=== PATIENT | female | born 1955 | race Caucasian/White ===

== ENCOUNTER → 2016-12-03 | Outpatient (CLI) | payer BC ==
[2014-08-04 11:27] VITALS: BP 162/94
[~2016-12-03] MED LIST: ACETAMINOPHEN W1 TA6 PO; APIDRA100 U/ML SC; ASPIRIN 32325 MG/TAB PO; CALCIUM600 M1 PO; EPA FISH OIL1000 MG PO; GAVISCON PO; GOOD NEIGHBOR200 MG PO; LANTUS PEN100 U/ML SC; LEVAQUIN 5500 MG/TA1 PO; LIORESAL 1010 MG/TAB PO; NORFLEX100 MG PO; OMEPRAZOLE20 M2 PO; PEPCID20 M1 PO; VITAMIN D 1001000 IU PO
== END ==
LOC: LAB 12:09
DX: B34.9 Viral infection, unspecified (principal); R10.816 Epigastric abdominal tenderness; E10.9 Type 1 diabetes mellitus without complications; W57.XXXA Bitten or stung by nonvenomous insect and other nonvenomous arthropods, initial encounter

== ENCOUNTER → 2017-06-30 | Outpatient (CLI) | payer BC ==
[2014-08-04 11:27] VITALS: BP 162/94
[2017-06-30 12:59] LABS: EOS # 0.2 (0.04-0.40); EOS % 2.2 % (1.0-5.0); HEMATOCRIT 42.8 % (37.0-47.0); HEMOGLOBIN 13.9 g/dL (12.5-16.0); LYMPH# 1.4 (1.50-4.00); MEAN CELL VOLUME 88 fl (78-100); MEAN CORPUSCULAR HEMOGLOBIN 29 pg (27-31); MEAN CORPUSCULAR HGB CONC 33 g/dL (33-37); MEAN PLATELET VOLUME 9.8 fl (7.4-10.4); MONO # 0.6 (0.20-0.80); NEU # 8.6 (1.40-6.50); PLATELET COUNT 249 K/mm3 (130-400); RED BLOOD COUNT 4.88 M/mm3 (4.10-5.30); RED CELL DISTRIBUTION WIDTH 13.9 % (11.5-14.5); WHITE BLOOD COUNT 10.8 K/mm3 (4.8-10.8)
[2017-06-30 13:06] LABS: ALBUMIN 4.1 g/dL (3.5-5.0); BUN/CREATININE RATIO 28.1 (6.0-26.0); CALCIUM 9.4 mg/dL (8.4-10.2); POTASSIUM 4.6 mmol/L (3.6-5.0); TOTAL BILIRUBIN 0.5 mg/dL (0.2-1.3); TOTAL PROTEIN 7.8 g/dL (6.3-8.2)
[2017-06-30 13:11] LABS: URINE APPEARANCE CLEAR; URINE COLOR YELLOW; URINE PROTEIN(semi-quant) NEGATIVE (NEGATIVE)
[2017-06-30 13:12] LABS: URINE BILIRUBIN NEGATIVE (NEGATIVE); URINE BLOOD NEGATIVE (NEGATIVE); URINE GLUCOSE NEGATIVE (NEGATIVE); URINE KETONE NEGATIVE (NEGATIVE); URINE LEUKOCYTE ESTERASE NEGATIVE (NEGATIVE); URINE NITRATE NEGATIVE (NEGATIVE); URINE UROBILINOGEN NORMAL (NORMAL); URINE WBC 0-1 /hpf (0-3)
== END ==
LOC: LAB 12:38
PROVIDERS: Nurse Practitioner Family
DX: R11.0 Nausea (principal); R53.81 Other malaise; B33.0 Epidemic myalgia; R51 Headache; E10.9 Type 1 diabetes mellitus without complications; Z88.1 Allergy status to other antibiotic agents; Z88.5 Allergy status to narcotic agent; Z88.7 Allergy status to serum and vaccine; Z88.8 Allergy status to other drugs, medicaments and biological substances

== ENCOUNTER → 2018-10-25 | Outpatient (CLI) | payer BC ==
[2014-08-04 11:27] VITALS: BP 162/94
[2018-10-25 09:26] LABS: ALBUMIN 3.8 g/dL (3.4-4.8); POTASSIUM 4.3 mmol/L (3.5-5.1)
[2018-10-25 09:27] LABS: CALCIUM 9.3 mg/dL (8.3-10.5)
[2018-10-25 09:28] LABS: TOTAL PROTEIN 6.7 g/dL (6.2-8.1)
[2018-10-25 09:30] LABS: TOTAL BILIRUBIN 0.5 mg/dL (0.2-1.2)
[2018-10-25 10:36] LABS: EOS # 0.1 (0.04-0.40); EOS % 1.9 % (1.0-5.0); HEMATOCRIT 39.8 % (37.0-47.0); LYMPH# 2.4 (1.50-4.00); MEAN CELL VOLUME 86 fl (78-100); MEAN CORPUSCULAR HEMOGLOBIN 28 pg (27-31); MEAN CORPUSCULAR HGB CONC 33 g/dL (33-37); MEAN PLATELET VOLUME 10.3 fl (7.4-10.4); MONO # 0.6 (0.20-0.80); NEU # 3.6 (1.40-6.50); PLATELET COUNT 256 K/mm3 (130-400); RED BLOOD COUNT 4.61 M/mm3 (4.10-5.30); RED CELL DISTRIBUTION WIDTH 13.9 % (11.5-14.5); WHITE BLOOD COUNT 6.8 K/mm3 (4.8-10.8)
[2018-10-25 11:03] LABS: URINE APPEARANCE CLEAR; URINE BILIRUBIN NEGATIVE (NEGATIVE); URINE BLOOD NEGATIVE (NEGATIVE); URINE COLOR YELLOW; URINE GLUCOSE NEGATIVE (NEGATIVE); URINE KETONE NEGATIVE (NEGATIVE); URINE LEUKOCYTE ESTERASE NEGATIVE (NEGATIVE); URINE NITRATE NEGATIVE (NEGATIVE); URINE PROTEIN(semi-quant) NEGATIVE (NEGATIVE); URINE UROBILINOGEN NORMAL (NORMAL); URINE WBC 0-1 /hpf (0-3)
== END ==
LOC: LAB 09:01
PROVIDERS: Family Medicine
DX: C40 Malignant neoplasm of bone and articular cartilage of limbs (principal); E10.9 Type 1 diabetes mellitus without complications; E78.5 Hyperlipidemia, unspecified

== ENCOUNTER → 2018-12-08 | Outpatient (CLI) | payer BC ==
[2014-08-04 11:27] VITALS: BP 162/94
[2018-12-08 14:06] LABS: EOS # 0.3 (0.04-0.40); EOS % 3.6 % (1.0-5.0); HEMATOCRIT 41.4 % (37.0-47.0); HEMOGLOBIN 13.6 g/dL (12.5-16.0); LYMPH# 1.6 (1.50-4.00); MEAN CELL VOLUME 87 fl (78-100); MEAN CORPUSCULAR HEMOGLOBIN 29 pg (27-31); MEAN CORPUSCULAR HGB CONC 33 g/dL (33-37); MONO # 0.7 (0.20-0.80); NEU # 5.8 (1.40-6.50); PLATELET COUNT 227 K/mm3 (130-400); RED BLOOD COUNT 4.78 M/mm3 (4.10-5.30); WHITE BLOOD COUNT 8.5 K/mm3 (4.8-10.8)
[2018-12-08 14:10] LABS: POTASSIUM 4.4 mmol/L (3.5-5.1)
[2018-12-08 14:11] LABS: CALCIUM 9.7 mg/dL (8.3-10.5)
== END ==
LOC: LAB 13:45
PROVIDERS: Family Medicine
DX: E10.9 Type 1 diabetes mellitus without complications (principal); J30.9 Allergic rhinitis, unspecified; R05 Cough; R50.9 Fever, unspecified

== ENCOUNTER → 2019-05-11 | Outpatient (CLI) | payer MEDICARE, BC ==
[2014-08-04 11:27] VITALS: BP 162/94
[2019-05-11 08:18] LABS: POTASSIUM 4.2 mmol/L (3.5-5.1)
[2019-05-11 08:19] LABS: CALCIUM 8.8 mg/dL (8.3-10.5)
[2019-05-11 08:20] LABS: TOTAL PROTEIN 7.1 g/dL (6.2-8.1)
[2019-05-11 08:22] LABS: TOTAL BILIRUBIN 0.5 mg/dL (0.2-1.2)
== END ==
LOC: LAB 07:43
PROVIDERS: Registered Nurse
DX: E11.42 Type 2 diabetes mellitus with diabetic polyneuropathy (principal); E55.9 Vitamin D deficiency, unspecified; E78.00 Pure hypercholesterolemia, unspecified; Z79.4 Long term (current) use of insulin; Z96.41 Presence of insulin pump (external) (internal)

== ENCOUNTER 2019-07-07 14:37 | Emergency (ER) | payer MEDICARE, BC ==
[2019-07-07] MEDS ORDERED: CIPRO500 M1 PO (17:09)
[2019-07-07] MEDS ORDERED: PERCOCET 325 MG1 TA2 PO (17:09)
[2019-07-07] MEDS ORDERED: ONDANSETRON ODT8 MG PO (17:11)
[2019-07-07 18:29] VITALS: BP 152/87
== END 2019-07-07 18:18 | disposition home or self-care (01) ==
LOC: ED 14:37
DX: M25.532 Pain in left wrist (principal); N39.0 Urinary tract infection, site not specified; E11.9 Type 2 diabetes mellitus without complications; Z79.4 Long term (current) use of insulin; Z90.89 Acquired absence of other organs; Z79.82 Long term (current) use of aspirin; Z87.81 Personal history of (healed) traumatic fracture; W19.XXXA Unspecified fall, initial encounter; Y92.009 Unspecified place in unspecified non-institutional (private) residence as the place of occurrence of the external cause
CPT/HCPCS: J2405; J3010; J7030

== ENCOUNTER → 2019-11-14 | Outpatient (CLI) | payer MEDICARE, BC ==
[~2019-11-14] MED LIST changes: +CIPRO500 M1 PO; +ONDANSETRON ODT8 MG PO; +PERCOCET 325 MG1 TA2 PO
[2019-11-14 08:49] LABS: ALBUMIN 4.2 g/dL (3.4-4.8); POTASSIUM 4.3 mmol/L (3.5-5.1)
[2019-11-14 08:50] LABS: CALCIUM 9.6 mg/dL (8.3-10.5)
[2019-11-14 08:52] LABS: TOTAL PROTEIN 7.3 g/dL (6.2-8.1)
[2019-11-14 08:53] LABS: TOTAL BILIRUBIN 0.5 mg/dL (0.2-1.2)
== END ==
LOC: LAB 08:26
PROVIDERS: Family Medicine
DX: E10.9 Type 1 diabetes mellitus without complications (principal)

== ENCOUNTER → 2020-04-18 | Outpatient (CLI) | payer MEDICARE, BC | LOC: LAB 12:16 | DX: M47.812 Spondylosis without myelopathy or radiculopathy, cervical region (principal); M48.02 Spinal stenosis, cervical region; E10.9 Type 1 diabetes mellitus without complications ==

== ENCOUNTER → 2020-10-03 | Outpatient (CLI) | payer MEDICARE, BC | LOC: LAB 10:08 | DX: E10.9 Type 1 diabetes mellitus without complications (principal) ==

== ENCOUNTER → 2021-05-14 | Outpatient (CLI) | payer MEDICARE, BC ==
[2021-05-14 09:39] LABS: BASO # 0.04 K/mm3 (0.02-0.10); EOS # 0.12 K/mm3 (0.04-0.40); EOS % 1.8 % (1.0-5.0); HEMATOCRIT 38.7 % (37.0-47.0); HEMOGLOBIN 12.6 g/dL (12.5-16.0); LYMPH# 2.17 K/mm3 (1.50-4.00); MEAN CELL VOLUME 87 fl (78-100); MEAN CORPUSCULAR HEMOGLOBIN 28 pg (27-31); MEAN CORPUSCULAR HGB CONC 33 g/dL (33-37); MEAN PLATELET VOLUME 9.7 fl (7.4-10.4); MONO # 0.52 K/mm3 (0.20-0.80); PLATELET COUNT 240 K/mm3 (130-400); RED BLOOD COUNT 4.43 M/mm3 (4.10-5.30); RED CELL DISTRIBUTION WIDTH 13.2 % (11.5-14.5); WHITE BLOOD COUNT 6.6 K/mm3 (4.8-10.8)
[2021-05-14 10:03] LABS: POTASSIUM 3.9 mmol/L (3.5-5.1)
[2021-05-14 10:04] LABS: CALCIUM 9.4 mg/dL (8.3-10.5)
[2021-05-14 10:05] LABS: TOTAL PROTEIN 7.1 g/dL (6.2-8.1)
[2021-05-14 10:07] LABS: TOTAL BILIRUBIN 0.5 mg/dL (0.2-1.2)
[2021-05-14 11:49] LABS: URINE APPEARANCE HAZY; URINE BILIRUBIN NEGATIVE (NEGATIVE); URINE BLOOD TRACE (NEGATIVE); URINE COLOR YELLOW; URINE GLUCOSE NEGATIVE (NEGATIVE); URINE KETONE NEGATIVE (NEGATIVE); URINE LEUKOCYTE ESTERASE 1+ (NEGATIVE); URINE NITRATE NEGATIVE (NEGATIVE); URINE PROTEIN(semi-quant) TRACE (NEGATIVE); URINE UROBILINOGEN NORMAL (NORMAL)
[2021-05-14 11:50] LABS: URINE MUCUS PRESENT (NOT PRESENT)
== END ==
LOC: LAB 08:47
PROVIDERS: Internal Medicine
DX: U07.1 COVID-19 (principal); K90.9 Intestinal malabsorption, unspecified; E78.5 Hyperlipidemia, unspecified; E10.9 Type 1 diabetes mellitus without complications; Z89.619 Acquired absence of unspecified leg above knee

== ENCOUNTER → 2021-09-27 | Outpatient (CLI) | payer MEDICARE, BC | LOC: LAB 09:50 | DX: E10.9 Type 1 diabetes mellitus without complications (principal); K90.9 Intestinal malabsorption, unspecified; U07.1 COVID-19; J45.20 Mild intermittent asthma, uncomplicated; M85.80 Other specified disorders of bone density and structure, unspecified site; Z89.619 Acquired absence of unspecified leg above knee ==

== ENCOUNTER → 2022-04-21 | Outpatient (CLI) | payer MEDICARE, BC | LOC: LAB 09:23 | DX: E10.9 Type 1 diabetes mellitus without complications (principal); K90.9 Intestinal malabsorption, unspecified; U07.1 COVID-19; J45.20 Mild intermittent asthma, uncomplicated; M85.80 Other specified disorders of bone density and structure, unspecified site; E78.5 Hyperlipidemia, unspecified; Z89.619 Acquired absence of unspecified leg above knee ==

== ENCOUNTER → 2023-01-22 | Outpatient (CLI) | payer MEDICARE, BC ==
[2023-01-22 10:52] LABS: BASO # 0.04 K/mm3 (0.02-0.10); EOS # 0.17 K/mm3 (0.04-0.40); EOS % 2.5 % (1.0-5.0); HEMATOCRIT 40.4 % (37.0-47.0); HEMOGLOBIN 12.8 g/dL (12.5-16.0); LYMPH# 2.12 K/mm3 (1.50-4.00); MEAN CELL VOLUME 89 fl (78-100); MEAN CORPUSCULAR HEMOGLOBIN 28 pg (27-31); MEAN CORPUSCULAR HGB CONC 32 g/dL (33-37); MEAN PLATELET VOLUME 9.7 fl (7.4-10.4); MONO # 0.44 K/mm3 (0.20-0.80); NEU # 3.91 K/mm3 (1.40-6.50); PLATELET COUNT 262 K/mm3 (130-400); RED BLOOD COUNT 4.54 M/mm3 (4.10-5.30); WHITE BLOOD COUNT 6.7 K/mm3 (4.8-10.8)
[2023-01-22 11:04] LABS: ALBUMIN 4.2 g/dL (3.4-4.8)
[2023-01-22 11:05] LABS: CALCIUM 9.7 mg/dL (8.3-10.5)
[2023-01-22 11:06] LABS: TOTAL PROTEIN 7.4 g/dL (6.2-8.1)
[2023-01-22 11:08] LABS: TOTAL BILIRUBIN 0.7 mg/dL (0.2-1.2)
[2023-01-22 11:13] LABS: MAGNESIUM 1.95 mg/dL (1.60-2.60)
[2023-01-22 11:24] LABS: URINE APPEARANCE HAZY; URINE BILIRUBIN NEGATIVE (NEGATIVE); URINE BLOOD NEGATIVE (NEGATIVE); URINE COLOR YELLOW; URINE GLUCOSE NEGATIVE (NEGATIVE); URINE KETONE NEGATIVE (NEGATIVE); URINE LEUKOCYTE ESTERASE 1+ (NEGATIVE); URINE NITRATE NEGATIVE (NEGATIVE); URINE PROTEIN(semi-quant) TRACE (NEGATIVE); URINE UROBILINOGEN NORMAL (NORMAL); URINE WBC 0-1 /hpf (0-3)
[2023-01-22 11:25] LABS: URINE MUCUS PRESENT (NOT PRESENT)
[2023-01-22 12:09] LABS: ERYTHROCYTE SEDIMENTATION RATE 30 mm/hr (0-30)
== END ==
LOC: LAB 10:34
PROVIDERS: Internal Medicine
DX: Z12.11 Encounter for screening for malignant neoplasm of colon (principal); C41.9 Malignant neoplasm of bone and articular cartilage, unspecified; L43.8 Other lichen planus; E78.5 Hyperlipidemia, unspecified; R20.2 Paresthesia of skin; M43.02 Spondylolysis, cervical region; M85.80 Other specified disorders of bone density and structure, unspecified site; M65.30 Trigger finger, unspecified finger; E10.9 Type 1 diabetes mellitus without complications; E55.9 Vitamin D deficiency, unspecified; M25.561 Pain in right knee; Z90.410 Acquired total absence of pancreas; Z89.9 Acquired absence of limb, unspecified

== ENCOUNTER → 2023-03-09 | Outpatient (CLI) | payer MEDICARE, BC | LOC: RAD 16:05 | DX: M17.11 Unilateral primary osteoarthritis, right knee (principal) ==

== ENCOUNTER → 2023-07-21 | Outpatient (CLI) | payer MEDICARE, BC ==
[2023-07-21 09:43] LABS: BASO # 0.05 K/mm3 (0.02-0.10); EOS # 0.22 K/mm3 (0.04-0.40); EOS % 2.9 % (1.0-5.0); HEMOGLOBIN 12.3 g/dL (12.5-16.0); LYMPH# 1.93 K/mm3 (1.50-4.00); MEAN CELL VOLUME 89 fl (78-100); MEAN CORPUSCULAR HEMOGLOBIN 28 pg (27-31); MEAN CORPUSCULAR HGB CONC 32 g/dL (33-37); MEAN PLATELET VOLUME 9.4 fl (7.4-10.4); MONO # 0.48 K/mm3 (0.20-0.80); NEU # 4.84 K/mm3 (1.40-6.50); PLATELET COUNT 253 K/mm3 (130-400); RED BLOOD COUNT 4.37 M/mm3 (4.10-5.30); RED CELL DISTRIBUTION WIDTH 14.7 % (11.5-14.5); WHITE BLOOD COUNT 7.5 K/mm3 (4.8-10.8)
[2023-07-21 09:50] LABS: ALBUMIN 3.9 g/dL (3.4-4.8)
[2023-07-21 09:51] LABS: CALCIUM 9.6 mg/dL (8.3-10.5)
[2023-07-21 09:52] LABS: TOTAL PROTEIN 6.7 g/dL (6.2-8.1)
[2023-07-21 09:54] LABS: TOTAL BILIRUBIN 0.4 mg/dL (0.2-1.2)
== END ==
LOC: LAB 09:20
PROVIDERS: Internal Medicine
DX: E78.5 Hyperlipidemia, unspecified (principal); E10.9 Type 1 diabetes mellitus without complications

== ENCOUNTER → 2024-01-05 | Outpatient (CLI) | payer MEDICARE, BC ==
[2024-01-05 09:41] LABS: BASO # 0.04 K/mm3 (0.02-0.10); EOS # 0.17 K/mm3 (0.04-0.40); EOS % 2.3 % (1.0-5.0); HEMATOCRIT 38.6 % (37.0-47.0); HEMOGLOBIN 12.3 g/dL (12.5-16.0); LYMPH# 2.09 K/mm3 (1.50-4.00); MEAN CELL VOLUME 90 fl (78-100); MEAN CORPUSCULAR HEMOGLOBIN 29 pg (27-31); MEAN CORPUSCULAR HGB CONC 32 g/dL (33-37); MEAN PLATELET VOLUME 9.3 fl (7.4-10.4); MONO # 0.43 K/mm3 (0.20-0.80); NEU # 4.76 K/mm3 (1.40-6.50); PLATELET COUNT 264 K/mm3 (130-400); RED BLOOD COUNT 4.31 M/mm3 (4.10-5.30); RED CELL DISTRIBUTION WIDTH 13.4 % (11.5-14.5); WHITE BLOOD COUNT 7.5 K/mm3 (4.8-10.8)
[2024-01-05 09:47] LABS: CALCIUM 9.6 mg/dL (8.3-10.5)
[2024-01-05 09:48] LABS: TOTAL PROTEIN 6.8 g/dL (6.2-8.1)
[2024-01-05 09:50] LABS: TOTAL BILIRUBIN 0.5 mg/dL (0.2-1.2)
[2024-01-05 09:55] LABS: MAGNESIUM 2.02 mg/dL (1.60-2.60)
[2024-01-05 10:07] LABS: PH-URINE 5.5 (5.0 - 8.0); URINE APPEARANCE CLEAR (CLEAR); URINE BILIRUBIN NEGATIVE (NEGATIVE); URINE BLOOD TRACE (NEGATIVE); URINE COLOR YELLOW (YELLOW); URINE GLUCOSE NEGATIVE (NEGATIVE); URINE KETONE NEGATIVE (NEGATIVE); URINE LEUKOCYTE ESTERASE 1+ (NEGATIVE); URINE MUCUS PRESENT (NOT PRESENT); URINE NITRATE NEGATIVE (NEGATIVE); URINE PROTEIN(semi-quant) NEGATIVE (NEGATIVE)
[2024-01-05 22:27] LABS: CREATININE OTHER SOURCE 47 mg/dL (63-166)
== END ==
LOC: LAB 09:21
PROVIDERS: Internal Medicine
DX: E78.5 Hyperlipidemia, unspecified (principal); M85.80 Other specified disorders of bone density and structure, unspecified site; E10.9 Type 1 diabetes mellitus without complications